=== PATIENT | female | born 1965 | race Caucasian/White ===

== ENCOUNTER 2020-11-01 22:22 | Emergency (ER) | payer SELFPAY ==
[2020-11-01 22:23] VITALS: BP 132/78; PULSE 97; RESP 18; TEMP 36.1; O2SAT 98; BMI 19.2
--- NOTE | 2020-11-01 22:48 | CT_ITS ---
We are attempting to reach an attending provider to discuss findings. An addendum with communication details will be sent when the communication is complete. STUDY: CT CERVICAL SPINE WITHOUT CONTRAST REASON FOR EXAM: Female, 54 years old. Fall RADIATION DOSAGE (If Supplied By Facility): CTDIvol = ( 12.16 ) mGy, DLP = ( 236.15 ) mGycm TECHNIQUE: High resolution transaxial imaging was performed without contrast material. Sagittal and coronal images were reconstructed. Individualized dose optimization techniques were used for this CT. COMPARISON: None FINDINGS: Normal craniovertebral junction. Normal anterior atlantoaxial articulation. Normal odontoid process. Normal cervical lordosis. Normal vertebral bodies and posterior osseous elements. C2-3: Normal endplates. Normal disc height and morphology. Normal central canal and intervertebral neuroforamina. C3-4: Normal endplates. Normal disc height and morphology. Normal central canal and intervertebral neuroforamina. C4-5: Normal endplates. Normal disc height and morphology. Normal central canal and intervertebral neuroforamina. C5-6: Normal endplates. Normal disc height and morphology. Normal central canal and intervertebral neuroforamina. C6-7: Normal endplates. Normal disc height and morphology. Normal central canal and moderate narrowing left intervertebral neuroforamina. Possible moderate left lateral disc protrusion. C7-T1: Normal endplates. Normal disc height and morphology. Normal central canal and intervertebral neuroforamina. Normal visualized soft tissue structures. Left apical pneumothorax. IMPRESSION: Left apical pneumothorax. Recommend CT chest. No fracture. Possible left lateral disc protrusion C6-7 causing neural foraminal narrowing. Recommend follow-up MRI. Electronically Signed: To Hewitt MD at 23:27 EDT , Service support , CT/Spine Cervical without Contras
--- NOTE | 2020-11-01 22:48 | CT_ITS ---
STUDY: CT BRAIN WITHOUT CONTRAST REASON FOR EXAM: Female, 54 years old. Fall RADIATION DOSAGE (If Supplied By Facility): CTDIvol = ( 44.99 ) mGy, DLP = ( 812.98 ) mGycm TECHNIQUE: Transaxial CT imaging of the brain was performed without administration of intravenous contrast material. Individualized dose optimization techniques were used for this CT. COMPARISON: CT brain 07/27/2011 FINDINGS: Normal soft tissue structures. Normal calvarium. Normal size ventricles and extra-axial spaces for the patient''s age. Normal white matter tracts of the cerebral hemispheres. Normal basal ganglia and thalami. Normal brainstem. Normal cerebellum. There is no intracranial hemorrhage. There are no findings of an acute ischemic infarction. Normal visualized paranasal sinuses. CT/Brain/Head without Contrast IMPRESSION: Normal unenhanced CT scan of the brain. Electronically Signed: To Hewitt MD at 23:22 EDT , Service support ,
--- NOTE | 2020-11-01 22:49 | ED.VIS.GEN ---
History of Present Illness Chief Complaint: Fall Narrative: Patient is a 54-year-old female who presents after a fall. She slipped on a vinyl jennifer in her socks. She is fell straight backward onto her chest neck and the back of her head. No loss of consciousness. No headache. No vomiting. She is not anticoagulated. She complains of pain along left side of her neck as well as left-sided chest pain. This is worse with palpation or inspiration. She did take ibuprofen before presentation here with minimal relief. No abdominal pain. No extremity injuries. Past Medical History - Allergies and Home Meds Allergies/Adverse Reactions: Allergies No Known Allergies Allergy (Verified 11/01/20 22:25) Primary Care Physician: Care Physician,No Primary [Primary Care Provider] - Past Medical History: None Smoking Status: Current every day smoker Review of Systems All systems negative except as indicated General: Denies: Fever Eyes: Denies: Visual changes - bilaterally ENT: Denies: Bilateral ear pain Cardiovascular: Reports: Chest pain Respiratory: Reports: Dyspnea Gastrointestinal: Denies: Nausea, Vomiting Skin: Denies: Rash Neurological: Denies: Headache Hematologic: Denies: Easy bruising Allergy: Denies: Uticaria Physical Exam Vital Signs/Narrative: Vital Signs Temp Pulse Resp BP Pulse Ox 11/01/20 22:23 97.0 F L 97 18 132/78 H 98 Inital Vital Signs reviewed: Yes General: Well nourished Head: Normocephalic Eyes: EOMI ENT: Moist mucous membranes Neck: Supple Cardiovascular: Regular rate, Regular rhythm Respiratory: No distress, CTA bilaterally, - - Patient has left-sided chest wall tenderness anteriorly and posteriorly I do not appreciate crepitus no obvious signs of trauma on the skin such as lacerations abrasions or hematomas no ecchymosis Abdomen: Soft, Nontender Extremities: Nontender, - - No pain with passive range of motion x4 Skin: Normal color Neurological: Alert, - - GCS of 15 with no focal or lateralizing neurological deficits Psychological: Normal affect Diagnostic/Tx/Re-eval Impressions Brain CT 11/01/20 22:48 IMPRESSION: Normal unenhanced CT scan of the brain. Electronically Signed: To Hewitt MD at 23:22 EDT , Service support , Cervical Spine CT 11/01/20 22:48 ADDENDUM: 11/01/20 2340 Ribs w/Chest X-Ray 11/01/20 23:16 IMPRESSION: RIBS: Acute rib fractures sixth and seventh ribs on the left. Probable old fractures fourth and fifth ribs. CHEST: Normal x-ray examination of the chest. Electronically Signed: To Hewitt MD at 23:46 EDT , Service support , 11/01/20 22:48 Brain/Head without Contrast [CT] Stat Spine Cervical without Contras [CT] Stat 11/01/20 23:16 Ribs Uni Min 3V w/PA Chest [RAD] Stat 11/01/20 23:23 CT Chest [Chest without Contrast] [CT] Stat - Medical Decision Making Patient was given intramuscular morphine and Zofran ODT. Unilateral rib series with a PA chest minimum 3 views was ordered. A PA chest x-ray with 5 views of the ribs was obtained. On my interpretation this does show a small left-sided pneumothorax and left-sided rib fractures. Radiology read this is acute rib fractures of the sixth and seventh ribs. CT of the head and cervical spine were obtained. No intracranial hemorrhage or cervical spinal fracture but a left apical pneumothorax is noted. Patient is maintaining normal pulse oximetry. I did obtain a CT of the chest. I did review the images and this appears to be a small pneumothorax. I spoke to Dr. Hardy our general surgeon on-call who requested transfer to a trauma facility. Patient accepted to [place] by Dr. Campa. ED Disposition - Plan for ED Patient: Disposition: [facility] Diagnosis: Fall, Rib fractures, Pneumothorax Referrals: Care Physician,No Primary [Primary Care Provider] -
[2020-11-01] MEDS: morphine 8 MG/ML Syringe 6 MG IM (22:55)
[2020-11-01] MEDS: Ondansetron ODT 4 MG Tablet PO (22:55)
--- NOTE | 2020-11-01 23:16 | RAD_ITS ---
STUDY: X-RAY - UNILATERAL RIBS ( LEFT ) WITH CHEST REASON FOR EXAM: Female, 54 years old. Pain TECHNIQUE - RIBS: 5 view(s) of the ribs. TECHNIQUE - CHEST: COMPARISON: None. FINDINGS - RIBS: Normal visualized ribs without a demonstrated fracture. FINDINGS - CHEST: No pneumothorax. The lungs are clear and expanded. There is no demonstrated pleural abnormality. Normal size heart. Normal mediastinum and [place]. Normal visualized pulmonary arteries. Normal visualized aortic arch and descending thoracic aorta. Normal visualized thoracic spine. Acute rib fractures noted laterally involving the sixth and seventh ribs with minimal displacement. Fractures of the fourth and fifth ribs appear remote. There is no demonstrated abnormality of the visualized soft tissue structures of the upper abdomen. RAD/Ribs Uni Min 3V w/PA Chest IMPRESSION: RIBS: Acute rib fractures sixth and seventh ribs on the left. Probable old fractures fourth and fifth ribs. CHEST: Normal x-ray examination of the chest. Electronically Signed: To Hewitt MD at 23:46 EDT , Service support ,
--- NOTE | 2020-11-01 23:23 | CT_ITS ---
We are attempting to reach an attending provider to discuss findings. An addendum with communication details will be sent when the communication is complete. STUDY: CT CHEST WITHOUT CONTRAST REASON FOR EXAM: Female, 54 years old. Rib fractures, pneumothorax RADIATION DOSAGE (If Supplied By Facility): CTDIvol = ( 6.42 ) mGy, DLP = ( 258.11 ) mGycm TECHNIQUE: Transaxial imaging was performed without the administration of intravenous contrast material. Multiplanar coronal and sagittal images were reformatted. Individualized dose optimization techniques were used for this CT. COMPARISON: None. FINDINGS: There is a proximal 20% to 30% left-sided pneumothorax demonstrated. Extending from the left apex to the inferior aspect of the left lung. There is a small emphysematous bleb within the left lung base. There are a few emphysematous blebs in the right apex. Normal heart and pericardium. Normal mediastinum. Normal hilar regions. Normal unenhanced pulmonary arteries. Normal aorta arch and descending thoracic aorta. There are fractures of the anterior left, 2, 3 and 4, there is an age-indeterminate fracture left rib 6. There is an acute appearing fracture left rib 7. There is multilevel degenerative change within the thoracolumbar spine. There is a prior right clavicle fracture. As a prior fracture of right rib 12 right rib 8, right rib 7, There is a low attenuating slightly irregular-appearing mass within the liver measuring 4.7 x 4.2 x 4.0 cm. There is a mass measuring 1.2 x 0.8 cm and the right hepatic lobe. They''re partially visualized diverticula without diverticulitis. There is partially visualized atherosclerotic disease of the aorta. CT/Chest without Contrast IMPRESSION: Prior anteriorly located left-sided rib fractures. Age-indeterminate fracture left rib 6. Acute appearing left seventh rib fracture. 20-30% left-sided pneumothorax. Prior fractures of the right ribs and clavicle. There are abnormal masses in the liver for which further evaluation is warranted with a CT with IV contrast liver mass protocol and/or MRI. Neoplastic disease should be excluded. The differential includes possible hemangioma. Your Electronically Signed: Zara Snyder MD at 0:15 EDT Tel , Service support ,
--- NOTE | 2020-11-02 00:12 | ED.RN ---
CALLED PHYSICIANS ABOUT THIS PATIENT BEING A TRAUMA TRANSFER. THE ETA FOR THIS PATIENT WAS 3 HOURS AT 0007
[2020-11-02 00:38] LABS: Anion Gap 7 (5-15); BUN 8 mg/dL (7-18); BUN/Creat Ratio 18.5 RATIO (10-20); Calcium,Total 8.3 mg/dL (8.5-10.1); Chloride 102 mmol/L (98-107); Creatinine, Serum 0.43 mg/dL (0.55-1.02); EST Glomerular Filtration Rate 163 mL/min (>60); Est Glom Filt Rate - Afr Amer 197 mL/min (>60); Estimated Creatinine Clearance 115.07 ml/min; Glucose 98 mg/dL (74-106); Potassium 4.3 mmol/L (3.5-5.1); Sodium Level 133 mmol/L (136-145)
[2020-11-02 00:55] VITALS: BP 116/93; PULSE 84; RESP 16; TEMP 36.7; O2SAT 97
[2020-11-02 01:28] LABS: Absolute Lymphocyte Count 1.12 X10^3/uL (0.83-4.51); Absolute Neutrophil Count 10.5 X10^3/uL (2.0-7.7); Basophil# 0.06 X10^3/uL; Basophil% 0.5 % (0-1); Eosinophil# 0.03 X10^3/uL; Eosinophils% 0.2 % (0-5); Hematocrit 38.1 % (37-47); Lymphocyte # 1.12 X10^3/ul (4.0); Lymphocyte % 8.8 % (19-41); Mean Corp Hgb Conc 34.1 g/dL (32-36); Mean Corpuscular Hgb 32.2 pg (27.0-32.0); Mean Corpuscular Volume 94.3 fL (81-99); Mean Platelet Vol. 8.4 fl (6.2-12.0); Monocyte# 1.04 X10^3/uL; Monocyte% 8.2 % (0-10); NRBC Flagged by Analyzer 0 % (0-5); Neutrophil # 10.46 X10^3/uL (2.7-7.7); Platelet Count 254 K/mm3 (150-450); RBC Distribution Width CV 12.2 % (11.6-14.6); RBC Distribution Width SD 42.4 fl (35.1-43.9); Red Blood Count 4.04 M/mm3 (4.2-5.4); White Blood Count 12.8 K/mm3 (4.4-11.0)
--- NOTE | 2020-11-02 02:30 | ED.RN ---
PATIENTS CALLED OUT AND SAID HE WANTED TO KNOW IF HE COULD TAKE THE PATIENT HIMSELF TO THE HOSPITAL. THE ETA FROM PHYSICIANS WAS 3 HOURS WHEN I CALLED, I EXPLAINED TO THE PATIENT THAT THE [facility] HAD LEFT WITH ANOTHER PATIENT AND WOULD BE BACK FOR HER WHEN THEY WAS DONE WITH THAT PATIENT. CALLED PHYSICIANS THEY SAID THAT THE [facility] WAS STILL 40 MINUTES OUT. EXPLAINED TO THE PATIENT THAT THE NURSES WAS WORKING WITH SOME CRITICAL PATIENTS AND THEY WOULD BE IN WHEN THEY COULD. PATIENT WAS UPSET THAT PHYSICIANS WAS TAKING THIS LONG TO COME AND GET HIS .
[2020-11-02] MEDS: Morphine 4 MG/ML Syringe IV (02:35)
[2020-11-02 02:38] VITALS: BP 145/91; PULSE 98; RESP 18; O2SAT 97
== END 2020-11-02 03:25 | disposition short-term general hospital (02) ==
PROVIDERS: Emergency Provider Emergency Medicine
DX: S22.32XA Fracture of one rib, left side, initial encounter for closed fracture (principal); S27.0XXA Traumatic pneumothorax, initial encounter; F17.200 Nicotine dependence, unspecified, uncomplicated; W01.0XXA Fall on same level from slipping, tripping and stumbling without subsequent striking against object, initial encounter
CPT/HCPCS: 70450; 71101; 71250; 72125; 80048; 85025; 96372; 96374; 99285; A4216

== ENCOUNTER 2023-05-03 07:56 | Emergency (ER) | payer SELFPAY ==
[2023-05-03 07:57] VITALS: BP 146/112; PULSE 112; RESP 16; TEMP 36.6; O2SAT 95; BMI 19.3
--- NOTE | 2023-05-03 08:09 | US_ITS ---
STUDY: ABDOMINAL ULTRASOUND - RIGHT UPPER QUADRANT REASON FOR VISIT: Female, 57 years old abdominal pain TECHNIQUE: Ultrasound evaluation of the right upper quadrant was performed with real-time and static mandel-scale imaging. TECHNICAL QUALITY: Adequate. COMPARISON: CT chest November 01, 2020 FINDINGS: Liver: The liver measures 13.9 cm. There is increased echogenicity consistent with fatty infiltration. The bile ducts are within normal limits. There is hepatic color flow. The direction of portal flow is hepatopetal. There is a hypoechoic mass within the right hepatic lobe measuring 3.8 x 3.7 x 3.2 cm. There is some peripheral vascular flow. Within the left hepatic lobe there is a lobulated hypoechoic structure measuring 1.0 x 1.0 x 0.6 cm. There appears to be some peripheral vascular flow. Gallbladder: Normal distended gallbladder. The gallbladder wall measures 2.3 mm. There is a positive sonographic Leonard''s sign. There is no pericholecystic fluid. There is biliary sludge dependent within the gallbladder. There is a suggestion of artifact within the wall of the gallbladder suggesting probable Rokitansky''s crystals possible cholesterol laden wall. Common Bile Duct (C.B.D.): The common bile duct measures 4.5 mm. Pancreas: Normal size of the head, body and tail of the pancreas. There is normal echogenicity of the pancreas. There is no demonstrated pancreatic mass or cyst. There is slight distention of the pancreatic duct measuring 1.7 mm. Right Kidney: Normal size of the right kidney. The right kidney measures 10.7 x 5.6 x 5.9 cm. Normal renal cortex. The right cortex measures cm. There is no demonstrated renal mass or cyst. There is no right hydronephrosis. US/Gallbladder IMPRESSION: Hepatic steatosis. There is a solid right hepatic lobe mass for which further evaluation and clarification is recommended, this is seen on prior study November 01, 2020. There is a indeterminate and low attenuating mass within the left hepatic lobe which may represent a complex cyst potentially hemangioma. The smaller low attenuation within the right hepatic lobe described on the prior report, is not well visualized on this study as seen on the prior study November 01, 2020. Unless already diagnosed, Recommend CT scan with a liver mass protocol when possible. Tiny stones possible cholesterol laden stones within the gallbladder minimal sludge. There is no significant gallbladder thickening. There is no visualized pericholecystic fluid. However the sonographic Leonard''s sign is described as positive. Could consider further imaging such as HIDA scan or potentially a CT scan of the abdomen and pelvis with a liver mass protocol to further clarify the masses that are described on this study and on a prior report from CT scan of the chest November 01, 2020. Electronically Signed: Zara Snyder MD at 10:01 EDT ,
--- NOTE | 2023-05-03 08:11 | ED.VIS.GI ---
HPI HPI - GI History of Present Illness Chief Complaint: Abd Pain Detail of Chief Complaint: Abdominal pain Informant: patient and spouse/S.O. Narrative Narrative: Patient presents to the emergency department complaint of severe abdominal pain that she has had for several months. Patient tells me the pain is relatively continuous. She was seen at [facility] this morning early and was discharged around 2 AM. Patient tells me she had blood work and a CAT scan that did not show anything significant and they were advised to go to [facility] to have an ultrasound but the significant other states that he has a hard time driving at night so they came to our hospital instead. Patient has history of hemangiomas of her liver. She states food does not seem to make the pain worse. Patient does drink alcohol about 6-7 beers per day. No prior abdominal surgeries. Patient states the pain is severe and worse with movement. PFSH PFSH Home Medications NK 11/01/20 [History Last Taken Unknown] hydrocodone-acetaminophen 5-325mg 5mg-325mg 1 tab PO Q4H PRN PRN Pain 2 days #10 TABLETS 05/03/23 [Rx Last Taken Unknown] lansoprazole 30 mg capsule,delayed release (Prevacid) 30 mg PO DAILY #14 caps 05/03/23 [Rx Last Taken Unknown] Allergy/AdvReac Type Severity Reaction Status Date / Time No Known Allergies Allergy Verified 05/03/23 07:59 Social History Smoking Status: Current every day smoker tobacco type: cigarettes ROS ROS ED Review of Systems ROS Unobtainable: other Constitutional Constitutional ED: Reports lethargy; Denies chills, fever(s), sweats or weight loss Eyes Eyes: Denies blurry vision, change in vision or diplopia ENT ENT ED: Denies rhinorrhea or sore throat Cardiovascular Cardiovascular: Denies chest pain, orthopnea or racing heartbeat Respiratory/Chest Respiratory/Chest: Denies cough, dyspnea, dyspnea on exertion, orthopnea or sputum Gastrointestinal Gastrointestinal: Reports abdominal pain; Denies diarrhea, nausea or vomiting Genitourinary Genitourinary ED: Denies dysuria, hematuria or urinary frequency Musculoskeletal Musculoskeletal: Denies arthralgias, back pain, myalgias or neck pain Integumentary Denies abscess, Abrasions or rash Neurologic Neurologic: Denies headache(s) or weakness Psychiatric Psychiatric: Denies anxiety, depression or suicidal thoughts Endocrine Endocrinology: Denies polydipsia, polyphagia or polyuria Hematologic/Lymphatic Hematologic/Lymphatic: Denies easy bleeding, easy bruising or lymphadenopathy Allergic/Immunologic Allergic/Immunologic ED: Denies mouth swelling, tongue swelling or urticaria EXAM Physical Exam Const Vital Signs: 05/03/23 07:57 Temperature 97.9 F Temperature Source Temporal Pulse Rate 112 H Respiratory Rate 16 Blood Pressure 146/112 H Blood Pressure Mean 123 Pulse Ox 95 Oxygen Delivery Method Room Air Positive well nourished and well developed General Appearance ED: well developed and NAD HEENT Reports TM's clear and moist mucous membranes normocephalic and atraumatic; Negative for trauma or tenderness Tympanic Membrane ED: Yes TM's clear Eyes PERRL and EOMs intact bilaterally General Eye ED: Negative for pale conjunctiva or scleral icterus Neck no lymphadenopathy, supple and no JVD General: Negative for tenderness Chest Wall inspection of chest normal and palpation of chest normal Chest: Negative for tenderness Resp normal respiratory effort and clear to auscultation bilaterally Effort and Inspection: Negative for respiratory distress or pain with movement Auscultation: Negative for rhonchi, wheezes or diminished lung sounds Cardio regular rate, regular rhythm, S1 normal heart sound, S2 normal heart sound and no murmurs Peripheral Pulses: pulses 2+ throughout GI normal to inspection, nondistended, normoactive bowel sounds, soft to palpation, non-tender and no masses GI Narrative: Tender to palpation to the right upper quadrant with some guarding. There is no rebound, rigidity, peritoneal signs. There is no skin erythema or warmth. No rashes. Back/Spine no CVA tenderness and no thoracic nor lumbar tenderness Extremity normal to inspection General Extremety ED: Negative for edema General Extremity: Negative for edema Neuro oriented x3, CN's II-XII intact bilaterally, no sensory deficits noted and gait normal Sensorium / Orientation: awake, alert, oriented to person, oriented to place and oriented to time Motor Exam: strength 5/5 throughout and strength abnormal Psych mental status grossly normal Skin no rashes or lesions noted and no wounds MDM MDM MDM Narrative Medical decision making narrative: Patient presents with right upper quadrant abdominal pain for 2 months. Pain made worse by eating. Patient was told by [place] emergency department that she needed an ultrasound of her gallbladder. They were supposed to go to [facility] but came to [place] instead for convenience. In the differential would be gallbladder disease versus pancreatitis versus inflammatory bowel disease versus gastritis or ulcers. IV line established. Basic labs obtained showed a white of 7.2 with hemoglobin 12.6 and platelet count of 278. Chemistries unremarkable. LFTs were normal. Lipase was minimally elevated at 78. Gallbladder ultrasound obtained showed small gallstones and sludge with some masses noted in the liver and recommended obtaining CT scan to evaluate further. Patient has known hemangiomas and did have a CT scan earlier today at [facility] for which I was able to get the result of and it was read by radiology there is no significant acute CT abnormality identified lesions in the liver suggestive of hemangioma. Patient was medicated morphine and Zofran. I did discuss case with general surgeon on-call who asked that we refer patient to his office for continued work-up. Patient will be given a prescription for few [place] for pain. She will be started on Prevacid. Lab Data Attestation: I reviewed the patient's lab results. Labs: Laboratory Results - last 24 hr 05/03/23 08:25 WBC 7.2 RBC 3.90 L Hgb 12.6 Hct 36.5 L MCV 93.6 MCH 32.3 H MCHC 34.5 RDW Std Deviation 41.5 RDW Coeff of [place]ad[place] 12.1 Plt Count 278 MPV 8.8 Immature Gran % (Auto) 0.300 Neut % (Auto) 65.7 Lymph % (Auto) 16.4 L [place] % (Auto) 14.4 H Eos % (Auto) 2.2 Baso % (Auto) 1.0 Absolute Neuts (auto) 4.7 Absolute Lymphs (auto) 1.18 Nucleated RBC % 0 Sodium 134 L Potassium 4.0 Chloride 104 Carbon Dioxide 22.0 Anion Gap 8 BUN 4 L Creatinine 0.34 L Estim Creat Clear Calc 141.91 Est GFR (MDRD) Af Amer 254 Est GFR (MDRD) Non-Af 210 BUN/Creatinine Ratio 11.7 Glucose 92 Lactic Acid 1.9 Calcium 8.3 L Total Bilirubin 0.20 AST 28 ALT 29 Alkaline Phosphatase 51 Total Protein 7.0 Albumin 3.5 Globulin 3.5 Albumin/Globulin Ratio 1.0 Lipase 78 H Radiography Diagnostic Testing: Clinical Impression(s) from Imaging Studies Gallbladder Ultrasound 05/03/23 08:09 IMPRESSION: Hepatic steatosis. There is a solid right hepatic lobe mass for which further evaluation and clarification is recommended, this is seen on prior study November 01, 2020. There is a indeterminate and low attenuating mass within the left hepatic lobe which may represent a complex cyst potentially hemangioma. The smaller low attenuation within the right hepatic lobe described on the prior report, is not well visualized on this study as seen on the prior study November 01, 2020. Unless already diagnosed, Recommend CT scan with a liver mass protocol when possible. Tiny stones possible cholesterol laden stones within the gallbladder minimal sludge. There is no significant gallbladder thickening. There is no visualized pericholecystic fluid. However the sonographic Leonard''s sign is described as positive. Could consider further imaging such as HIDA scan or potentially a CT scan of the abdomen and pelvis with a liver mass protocol to further clarify the masses that are described on this study and on a prior report from CT scan of the chest November 01, 2020. Electronically Signed: Zara Snyder MD at 10:01 EDT Reading Location ID and State: [facility] / [place] Tel , Service support , Discharge Plan Triage Chief Complaint: Abd Pain ED Provider: Deann Amezquita Dx/Rx/DC Orders Clinical Impression: Abdominal pain Instructions: ED Abdominal Pain Unkn Cause Fem Prescriptions: New lansoprazole [Prevacid] 30 mg capsule,delayed release(DR/EC) 30 mg PO DAILY Qty: 14 0RF hydrocodone-acetaminophen [hydrocodone-acetaminophen] 5-325 mg tablet 1 tab PO Q4H PRN PRN (Reason: Pain) 2 Days Qty: 10 0RF No Action NK Primary Care Provider: Care Physician,No Primary Referrals: Dimitrios Marie MD [Med Staff - Active Staff] - 3-5 Days Care Physician,No Primary [Primary Care Provider] - Disposition Disposition: Home, Self Care
[2023-05-03] MEDS: 0.9% Normal Saline (1000mL) 1,000 ML 150 ML IV (08:31)
[2023-05-03] MEDS: Morphine 4 MG/ML Syringe IV (08:32)
[2023-05-03] MEDS: Ondansetron 4 MG/2 ML Vial IV (08:32)
[2023-05-03 08:42] LABS: Absolute Lymphocyte Count 1.18 X10^3/uL (0.83-4.51); Absolute Neutrophil Count 4.7 X10^3/uL (2.0-7.7); Basophil# 0.07 X10^3/uL; Eosinophil# 0.16 X10^3/uL; Eosinophils% 2.2 % (0-5); Hematocrit 36.5 % (37-47); Hemoglobin 12.6 g/dL (12.0-15.0); Lymphocyte # 1.18 X10^3/ul (0.83-4.51); Lymphocyte % 16.4 % (19-41); Mean Corp Hgb Conc 34.5 g/dL (32-36); Mean Corpuscular Hgb 32.3 pg (27.0-32.0); Mean Corpuscular Volume 93.6 fL (81-99); Mean Platelet Vol. 8.8 fl (6.2-12.0); Monocyte# 1.04 X10^3/uL; Monocyte% 14.4 % (0-10); NRBC Flagged by Analyzer 0 % (0-5); Neutrophil # 4.74 X10^3/uL (2.7-7.7); Neutrophil % 65.7 % (47-70); Platelet Count 278 K/mm3 (150-450); RBC Distribution Width CV 12.1 % (11.6-14.6); RBC Distribution Width SD 41.5 fl (35.1-43.9); White Blood Count 7.2 K/mm3 (4.4-11.0)
[2023-05-03 08:58] LABS: AST(SGOT) 28 U/L (15-37); Alanine Aminotransfer ALT/SGPT 29 U/L (13-56); Albumin, Serum 3.5 g/dL (3.2-5.0); Alkaline Phosphatase 51 U/L (45-117); Anion Gap 8 (5-15); BUN 4 mg/dL (7-18); BUN/Creat Ratio 11.7 RATIO (10-20); Calcium,Total 8.3 mg/dL (8.5-10.1); Chloride 104 mmol/L (98-107); Creatinine, Serum 0.34 mg/dL (0.55-1.02); EST Glomerular Filtration Rate 210 mL/min (>60); Est Glom Filt Rate - Afr Amer 254 mL/min (>60); Estimated Creatinine Clearance 141.91 ml/min; Globulin 3.5 g/dL (2.2-4.2); Glucose 92 mg/dL (74-106); Lipase 78 U/L (13-75); Sodium Level 134 mmol/L (136-145)
[2023-05-03 09:23] LABS: Lactic Acid 1.9 mmol/L (0.4-1.9)
--- NOTE | 2023-05-03 09:26 | NURSING ---
FAXED RELEASE OF INFO TO [facility]
[2023-05-03 11:08] VITALS: TEMP 36.4; O2SAT 100
== END 2023-05-03 11:11 | disposition home or self-care (01) ==
PROVIDERS: Emergency Provider Emergency Medicine; Visit Provider Emergency Medicine
DX: R10.9 Unspecified abdominal pain (principal); F17.210 Nicotine dependence, cigarettes, uncomplicated
CPT/HCPCS: 76705; 80053; 83605; 83690; 85025; 96361; 96374; 96375; 99282; J7030; J2405